=== PATIENT | female | born 1985 | race Caucasian/White ===

== ENCOUNTER → 2019-06-19 09:42 | Outpatient (BNVA) | payer MEDICARE, MEDICAID, SELFPAY | PROVIDERS: Family Provider Family Medicine; PCP Family Medicine; Visit Provider Specialist | DX: G40.909 Epilepsy, unspecified, not intractable, without status epilepticus (principal); F84.0 Autistic disorder | CPT/HCPCS: 99213 ==

== ENCOUNTER → 2019-10-22 10:02 | Outpatient (BNVA) | payer MEDICARE, MEDICAID, SELFPAY | PROVIDERS: Family Provider Family Medicine; PCP Family Medicine; Visit Provider Specialist | DX: F84.0 Autistic disorder (principal) | CPT/HCPCS: 99213 ==

== ENCOUNTER 2020-01-06 05:57 | Emergency (ER) | payer MEDICARE, MEDICAID, SELFPAY ==
[2020-01-06 06:02] VITALS: BP 112/72; PULSE 90; RESP 26; TEMP 36.3; O2SAT 94; BMI 49.0
--- NOTE | 2020-01-06 06:08 | XRR_ITS ---
PROCEDURE INFORMATION: Exam: XR Chest, 1 View Exam date and time: 01/06/2020 6:08 AM Age: 34 years old Clinical indication: Shortness of breath; Additional info: Cough TECHNIQUE: Imaging protocol: XR of the chest Views: 1 view. COMPARISON: CR Chest 1 [place] [id number] 01/23/2013 9:56 PM FINDINGS: Lungs: Interval appearance of multiple hazy densities in both lungs. Continued shallow lung volumes. Pleural space: Still no pneumothorax. No visible pleural fluid. Heart/Mediastinum: Interval increase in the heart size resulting in cardiomegaly. Bones/joints: No visible acute bony disease. XR/XR chest 1V portable [id number] IMPRESSION: Interval multiple bilateral lung densities suggesting pneumonia. Interval cardiomegaly, also.
--- NOTE | 2020-01-06 06:16 | ED_ITS ---
HPI - URI/Sore Throat General: Chief Complaint: Upper Respiratory Infection Stated Complaint: cough Time Seen by Provider: 01/06/20 06:07 Source: patient Mode of arrival: ambulatory Limitations: no limitations History of Present Illness: HPI Narrative: 34-year-old female whose had a cough over the last 5 days. Mother states is been nonproductive in nature. She has had no shortness of breath or fever. Patient is well-appearing here. They deny any worsening or improving factors. Associated symptoms: Deny abdominal pain, chills, chest pain, diarrhea, fever(s), headache(s), nausea or vomiting Review of Systems Const: Denies: fever(s), chills, body aches or change in appetite Eyes: Denies: blurry vision or eye discomfort ENMT: Denies: throat pain or dental pain Card: Denies: chest pain Resp: Reports: non-productive cough GI: Denies: abdominal pain, nausea, vomiting or diarrhea : Denies: dysuria Musc: Denies: neck pain or back pain Skin/Breast: Denies: rash Neuro: Denies: headache(s) Psych: Denies: depression Kaushik/Lymph: Denies: easy bruising All/Imm: Denies: urticaria PFSH ED PFSH: Family History Other CAD (coronary artery disease) Cancer Diabetes Denies family history of Hypertension Stroke Social History Smoking and tobacco status: never smoked Alcohol intake: never History of recent travel: No Physical Exam Const: COMMON NORMALS: no acute distress, patient oriented x3 and healthy appearing HENMT: COMMON NORMALS: normocephalic and atraumatic HEAD & SCALP: normocephalic and atraumatic Eye: COMMON NORMALS: Equal, round and reactive pupils present and EOMs intact bilaterally PUPIL: Yes Equal, round and reactive pupils present Neck/C-Spine: COMMON NORMALS: full ROM and supple Chest: COMMONS NORMALS: normal inspection of the chest and normal palpation of entire chest wall Resp: COMMON NORMALS: normal respiratory effort, No retractions, No use of accessory muscles and clear to auscultation bilaterally AUSCULTATION: clear to auscultation bilaterally Cardio: COMMON NORMALS: regular rate, regular rhythm and No murmurs present (Cardio) RATE: regular rate RHYTHM: regular rhythm GI: COMMON NORMALS: Normal to inspection, nondistended, normoactive bowel sounds present, Soft to palpation, non-tender and no masses PALPATION: Yes Soft to palpation Extremity: COMMON NORMALS: normal to inspection and full ROM Neuro: COMMON NORMALS: patient oriented x3, moves all extremities and no focal motor deficits Psych: COMMON NORMALS: mental status grossly normal, Normal thought process present and cooperative THOUGHT PROCESS: Normal thought process present Skin: COMMON NORMALS: no rashes or lesions noted and no wounds GENERAL SKIN EXAM: no rashes or lesions noted Course Vital Signs: Vital signs: Vital Signs Temperature 97.4 F L 01/06/20 06:02 Pulse Rate 90 01/06/20 06:02 Respiratory Rate 26 H 01/06/20 06:02 Blood Pressure 112/72 01/06/20 06:02 Pulse Oximetry 94 01/06/20 06:02 MDM - URI/Sore Throat MDM Narrative: Medical decision making narrative: Patient presents here with cough that is likely an upper respiratory infection. Will swab for COVID. Patient is stable for discharge and return if worsening. Her x-ray here shows slight perihilar infiltrates quality of x-ray is not great due to her size. Patient is afebrile here and is in no distress and is not requiring any oxygen. Will swab Open and start her on antibiotics. Informed her if she has any worsening symptoms to return. She is to get a pulse ox [id number] and monitor oxygen status. She is to follow-up with her primary care doctor in 3 to 5 days. Her and her mother understand and agree to plan.. Imaging Data^: CXR: Attestation: I personally reviewed and interpreted this imaging study as follows: My impression: slight perihilar infiltrate Discharge Plan Discharge Patient Disposition: Home Clinical Impression: Upper respiratory infection Qualifiers: URI type: unspecified URI Qualified Code(s): J06.9 - Acute upper respiratory infection, unspecified Condition: Stable Prescriptions: New doxycycline hyclate 100 mg tablet 100 mg PO BID 7 Days Qty: 14 RF: 0 No Action montelukast [Singulair] 10 mg tablet 10 mg PO DAILY RF: 0 desvenlafaxine succinate [Pristiq] 100 mg tablet extended release 24 hr 100 mg PO DAILY Qty: 30 RF: 6 clobazam [Onfi] 20 mg tablet 40 mg PO BID 30 Days Qty: 120 RF: 5 Vimpat 100 mg tablet 100 mg PO BID Qty: 60 RF: 5 lorazepam 0.5 mg tablet 0.5 mg PO BID PRN (Reason: anxiety) Qty: 60 RF: 5 olanzapine [Zyprexa] 2.5 mg tablet 2.5 mg PO DAILY Qty: 30 RF: 6 zonisamide [Zonegran] 100 mg capsule 300 mg PO BID 30 Days Qty: 180 RF: 6 Discharge Orders: Discharge Order (Routine); Ordered 01/06/20 Ordered By: Larry Corbett Referrals: Jeannette Mooney MD [Primary Care Provider] - 1-3 days Discharge Diet: Advance as tolerated Discharge Activity: Resume usual activity Patient Instructions: Upper Respiratory Infection (ED) Coding Level of Care Code ED Chief Petroleum Engineer for [place] Fwd Exam Comprehensive
--- NOTE | 2020-01-06 06:26 | XRR_ITS ---
PROCEDURE INFORMATION: Exam: XR Chest, 2 Views Exam date and time: 01/06/2020 6:38 AM Age: 34 years old Clinical indication: Shortness of breath; Additional info: Cough TECHNIQUE: Imaging protocol: XR of the chest Views: 2 views. COMPARISON: CR (CHEST, ) 01/06/2020 6:16 AM FINDINGS: Lungs: Interval slight increase in the lung volumes and decrease in the haziness in parts of the lungs. Pleural space: Still no pneumothorax or visible pleural fluid. Heart/Mediastinum: Continued cardiomegaly. Bones/joints: No apparent change in the bones. XR/XR chest 2V* [id number] IMPRESSION: Interval improvement in the lung infiltrates. Continued cardiomegaly.
[2020-01-06 07:00] VITALS: BP 112/72; PULSE 91; RESP 18; O2SAT 97
[2020-01-09 00:01] LABS: Quest SARS-CoV-2 RNA DETECTED (NOT DETECTED)
--- NOTE | 2020-01-09 09:25 | PC.NURSE ---
Pt called and notified of positive COVID result.
== END 2020-01-06 07:00 | disposition home or self-care (01) ==
PROVIDERS: Emergency Provider Emergency Medicine; PCP Family Medicine
DX: J06.9 Acute upper respiratory infection, unspecified (principal); U07.1 COVID-19
CPT/HCPCS: 12345; 71045; 71046; 87635; 99282; 99283

== ENCOUNTER → 2020-04-14 10:36 | Outpatient (BNVA) | payer MEDICARE, MEDICAID, SELFPAY | PROVIDERS: PCP Family Medicine; Visit Provider Specialist | DX: G40.909 Epilepsy, unspecified, not intractable, without status epilepticus (principal); F84.0 Autistic disorder; E66.01 Morbid (severe) obesity due to excess calories; Z68.43 Body mass index [BMI] 50.0-59.9, adult; Z86.16 Personal history of COVID-19 | CPT/HCPCS: 99214 ==

== ENCOUNTER → 2020-10-15 09:50 | Outpatient (BNVA) | payer MEDICARE, MEDICAID, SELFPAY | PROVIDERS: PCP Family Medicine; Visit Provider Specialist | DX: G40.109 Localization-related (focal) (partial) symptomatic epilepsy and epileptic syndromes with simple partial seizures, not intractable, without status epilepticus (principal); G40.909 Epilepsy, unspecified, not intractable, without status epilepticus | CPT/HCPCS: 99214 ==

== ENCOUNTER 2021-03-21 12:16 | Emergency (ER) | payer MEDICARE, MEDICAID, SELFPAY ==
[2021-03-21 12:37] VITALS: BP 150/102; PULSE 87; RESP 16; TEMP 36.3; O2SAT 95
--- NOTE | 2021-03-21 12:41 | XRR_ITS ---
PROCEDURE INFORMATION: Exam: XR Chest Exam date and time: 03/21/2021 12:41 PM Age: 35 years old Clinical indication: Cough TECHNIQUE: Imaging protocol: XR of the chest. Views: 1 view. COMPARISON: CR XR chest 2V* [id number] 01/06/2020 6:32 AM FINDINGS: Lungs: Unremarkable. No consolidation. Pleural spaces: Unremarkable. No pleural effusion. No pneumothorax. Heart/Mediastinum: Unremarkable. No cardiomegaly. Bones/joints: Unremarkable. XR/XR chest 1V portable [id number] IMPRESSION: No acute findings.
--- NOTE | 2021-03-21 12:41 | W.ED.URI ---
HPI - URI/Sore Throat General: Chief Complaint: Upper Respiratory Infection Stated Complaint: Bad Cough and Ear irritation Source: other (caregiver) Mode of arrival: ambulatory Limitations: no limitations History of Present Illness: HPI Narrative: Patient is a 35-year-old nonverbal adult here with family for concerns of a cough over the past two weeks that doesn't seem to be improving. She has been tested for COVID (PCR) at [facility] about 5-6 days ago and it was negative. Family states she has not been running fevers. Continuing to be at mental baseline. Still eating/drinking normally. Associated symptoms: Deny diarrhea, epistaxis, fever(s) (no documented fevers) or vomiting Review of Systems General: Reports: Other (pt is nonverbal-ROS answered from what is known by family) Const: Denies: fever(s) (no documented fevers), change in appetite or change in weight Eyes: Denies: eye discharge or eye redness ENMT: Denies: swelling of lips/tongue, ear discharge, nasal discharge or epistaxis Card: Reports: other (pt has not seemed like she is short of breath in any way); Denies: swelling of feet/ankles Resp: Reports: non-productive cough; Denies: wheezing, stridor or hemoptysis GI: Denies: vomiting, diarrhea or change in bowel habits : Reports: other (normal urinary habits) Skin/Breast: Denies: rash Neuro: Reports: other (no changes to mental baseline) PFSH ED PFSH: Family History Other CAD (coronary artery disease) Cancer Diabetes Denies family history of Hypertension Stroke Social History Smoking and tobacco status: never smoked Alcohol intake: never History of recent travel: No Physical Exam Const: COMMON NORMALS: no acute distress and alert EXAM LIMITATIONS: other limitations (pt with severe cognitive deficits; she is nonverbal) GENERAL APPEARANCE: cooperative NUTRITIONAL APPEARANCE: obese HENMT: COMMON NORMALS: normocephalic, atraumatic, EAC's normal, TM's normal bilaterally, Normal external nose present, Normal nasal mucous membranes and turbinates present, moist oral mucous membranes and oropharynx normal HEAD & SCALP: normal to inspection, normocephalic and atraumatic FACE & SINUS: normal facial exam NOSE: Normal external nose present and Normal nasal mucous membranes and turbinates present EXTERNAL EAR: Yes other (dry skin to L pinna/behind ear) EXTERNAL AUDITORY CANAL: EAC's normal TYMPANIC MEMBRANE: TM's normal bilaterally MOUTH: Normal oral and palatal mucosa present, lip normal and tongue normal THROAT: posterior oropharynx normal, tonsils normal and uvula midline Eye: GENERAL EYE: appearance normal, both eyes and all related structures Resp: COMMON NORMALS: normal respiratory effort and clear to auscultation bilaterally AUSCULTATION: clear to auscultation bilaterally Cardio: COMMON NORMALS: regular rate and regular rhythm RATE: regular rate RHYTHM: regular rhythm Extremity: COMMON NORMALS: no calf tenderness and no pedal edema Neuro: SENSORIUM/ORIENTATION: Yes alert Skin: COMMON NORMALS: no rashes or lesions noted GENERAL SKIN EXAM: no rashes or lesions noted Course Vital Signs: Vital signs: Vital Signs Temperature 97.3 F L 03/21/21 14:38 Pulse Rate 87 03/21/21 14:38 Respiratory Rate 16 03/21/21 14:38 Blood Pressure 116/78 03/21/21 14:38 Pulse Oximetry 96 03/21/21 14:38 MDM - URI/Sore Throat MDM Narrative: Medical decision making narrative: Brief history and physical exam was performed as part of the triage process. Due to current ED wait time patient will be placed in waiting room until a room becomes available. Explained to patient he/she will be seen in order of severity. Patient is currently safe to wait in the waiting room until we can get them placed. Patient informed that if condition worsens at any time to please let the front end web developer know. Patient appears in no acute distress. Her vital signs are normal. CXR is normal. She had a negative COVID PCR approximately 5 days ago. Recommend continuing to treat at home and she can follow-up with primary care next week for any nonimprovement. Return to ED precautions given. Imaging Data^: CXR: Radiologist's impression: [address] [place] [address] XRay Report Signed Patient: Magda Nieto Unit #: [id number] : 1985 Age/Sex: 35 / F ADM Date: 03/21/21 Loc: ER Room/Bed: Attending Dr: Ordering Provider/Ordering MD: Ana Serrano Date of Service: 03/21/21 Procedure(s): XR chest 1V portable [id number] Accession Number(s): [id number] Report Number: [id number] PROCEDURE INFORMATION: Exam: XR Chest Exam date and time: 03/21/2021 12:41 PM Age: 35 years old Clinical indication: Cough TECHNIQUE: Imaging protocol: XR of the chest. Views: 1 view. COMPARISON: CR XR chest 2V* [id number] 01/06/2020 6:32 AM FINDINGS: Lungs: Unremarkable. No consolidation. Pleural spaces: Unremarkable. No pleural effusion. No pneumothorax. Heart/Mediastinum: Unremarkable. No cardiomegaly. Bones/joints: Unremarkable. XR/XR chest 1V portable [id number] IMPRESSION: No acute findings. Dictated By: José West MD Signed By: José West MD Signed Date/Time: 03/21/21 1600 DD/ 1241 Discharge Plan Discharge Patient Disposition: Home Clinical Impression: Cough Condition: Stable Prescriptions: New Tessalon Perles 100 mg capsule 100 mg PO Q6H PRN (Reason: cough) Qty: 14 RF: 0 No Action levocetirizine 5 mg tablet 5 mg PO DAILY RF: 0 olanzapine [Zyprexa] 2.5 mg tablet 2.5 mg PO DAILY Qty: 30 RF: 6 zonisamide 100 mg capsule See Rx Instructions .ROUTE .COMPLEX Qty: 180 RF: 5 desvenlafaxine succinate [Pristiq] 100 mg tablet extended release 24 hr 100 mg PO DAILY Qty: 30 RF: 6 clobazam [Onfi] 20 mg tablet 40 mg PO BID 30 Days Qty: 120 RF: 5 lorazepam 0.5 mg tablet 0.5 mg PO BID PRN (Reason: anxiety) Qty: 60 RF: 5 Discharge Orders: Discharge ED (Routine); Ordered 03/21/21 Ordered By: Ana Serrano Referrals: Jeannette Mooney MD [Primary Care Provider] - Patient Instructions: Acute Cough (ED) Coding Level of Care Code ED Hematology Supervisor for Chg Shruthi
[2021-03-21 14:38] VITALS: BP 116/78; PULSE 87; RESP 16; TEMP 36.3; O2SAT 96
== END 2021-03-21 14:53 | disposition home or self-care (01) ==
PROVIDERS: Emergency Provider Physician Assistant; PCP Family Medicine
DX: R05.9 Cough, unspecified (principal); J06.9 Acute upper respiratory infection, unspecified; J02.9 Acute pharyngitis, unspecified
CPT/HCPCS: 71045; 99282

== ENCOUNTER → 2021-04-15 13:11 | Outpatient (BNVA) | payer MEDICARE, MEDICAID, SELFPAY | PROVIDERS: PCP Family Medicine; Visit Provider Specialist | DX: G40.111 Localization-related (focal) (partial) symptomatic epilepsy and epileptic syndromes with simple partial seizures, intractable, with status epilepticus (principal); G40.411 Other generalized epilepsy and epileptic syndromes, intractable, with status epilepticus; Z71.85 Encounter for immunization safety counseling | CPT/HCPCS: 99214; 99215 ==

== ENCOUNTER → 2021-08-11 13:07 | Outpatient (BNVA) | payer MEDICARE, MEDICAID, SELFPAY | PROVIDERS: PCP Family Medicine; Visit Provider Specialist | DX: G40.119 Localization-related (focal) (partial) symptomatic epilepsy and epileptic syndromes with simple partial seizures, intractable, without status epilepticus (principal); E66.01 Morbid (severe) obesity due to excess calories; Z68.42 Body mass index [BMI] 45.0-49.9, adult; F84.0 Autistic disorder; R53.83 Other fatigue | CPT/HCPCS: 99214 ==

== ENCOUNTER 2021-08-26 15:20 | Outpatient (CLI) | payer MEDICARE, MEDICAID, SELFPAY ==
--- NOTE | 2021-08-26 16:35 | XR_ITS ---
WS: [id number] CHEST 2 VIEWS HISTORY: CHRONIC COUGH COMPARISON: 03/21/2021 Quality of examination is limited by body habitus. Lungs: Lung volumes are decreased due to poor inspiration. This is resulting in mild crowding the tena g markings. No atelectasis or pneumonia. Normal vasculature. No pleural effusion. Cardiac size: Normal. Mediastinum/Aorta: Normal mediastinum. Bones: Normal. XR/XR chest 2V* [id number] IMPRESSION: Limited by poor inspiration and body habitus. No abnormality is identified.
== END 2021-08-26 15:21 | disposition home or self-care (01) ==
PROVIDERS: PCP Family Medicine; Visit Provider Specialist
DX: R05.3 Chronic cough (principal)
CPT/HCPCS: 71046

== ENCOUNTER 2021-09-19 12:07 | Emergency (ER) | payer MEDICARE, MEDICAID, SELFPAY ==
[2021-09-19 12:16] VITALS: BP 137/92; PULSE 122; RESP 18; O2SAT 95; BMI 46.3
--- NOTE | 2021-09-19 12:20 | XRR_ITS ---
PROCEDURE INFORMATION: Exam: XR Chest Exam date and time: 09/19/2021 12:27 PM Age: 35 years old Clinical indication: Shortness of breath; Additional info: SOB TECHNIQUE: Imaging protocol: Radiologic exam of the chest. Views: 1 view. COMPARISON: CR XR chest 2V* [id number] 08/26/2021 4:43 PM FINDINGS: Lungs: Unremarkable. No consolidation. Pleural spaces: Unremarkable. No pleural effusion. No pneumothorax. Heart/Mediastinum: Unremarkable. No cardiomegaly. Bones/joints: Unremarkable. XR/XR chest 1V portable [id number] IMPRESSION: No acute findings.
--- NOTE | 2021-09-19 12:22 | W.ED.SEIZURE ---
HPI - Seizure General: Chief Complaint: Seizure Stated Complaint: SEIZURE Time Seen by Provider: 09/19/21 12:10 History of Present Illness: HPI Narrative: Patient brought in by EMS after having a seizure. Mom states the patient has a history of seizures but this morning lasted longer than normal. States she did start Zyrtec and Zantac recently as new medications. Denies any fever, vomiting, or other recent obvious sick symptoms. The patient is nonverbal and does not communicate. Per EMS the patient was in the car with no air conditioning for about 30 minutes prior to this episode. Associated symptoms: Deny fever(s) Review of Systems General: Reports: Other (Review of systems is limited due to patient being nonverbal) Const: Denies: fever(s) or change in appetite Eyes: Denies: eye discharge or eye redness ENMT: Denies: nasal discharge or nasal congestion Resp: Denies: productive cough or wheezing GI: Denies: vomiting or diarrhea : Denies: urinary frequency Skin/Breast: Denies: rash, skin swelling or sores Neuro: Denies: weakness in extremities, difficulty walking or frequent falls Endo: Denies: polyuria or polydipsia PFSH ED PFSH: Family History Other CAD (coronary artery disease) Cancer Diabetes Denies family history of Hypertension Stroke Social History Smoking and tobacco status: never smoked Alcohol intake: never History of recent travel: No Physical Exam Const: COMMON NORMALS: no acute distress, healthy appearing and alert HENMT: COMMON NORMALS: normocephalic and atraumatic HEAD & SCALP: normocephalic and atraumatic Eye: COMMON NORMALS: Equal, round and reactive pupils present and EOMs intact bilaterally PUPIL: Yes Equal, round and reactive pupils present Neck/C-Spine: COMMON NORMALS: full ROM and supple Resp: COMMON NORMALS: normal respiratory effort, No retractions and No use of accessory muscles Cardio: COMMON NORMALS: regular rhythm RHYTHM: regular rhythm OTHER: Tachycardia GI: COMMON NORMALS: Normal to inspection, nondistended, normoactive bowel sounds present, Soft to palpation and non-tender PALPATION: Yes Soft to palpation Extremity: COMMON NORMALS: normal to inspection and full ROM Neuro: SENSORIUM/ORIENTATION: Yes alert Skin: COMMON NORMALS: no rashes or lesions noted and no wounds GENERAL SKIN EXAM: no rashes or lesions noted Course Vital Signs: Vital signs: Vital Signs Pulse Rate 107 H 09/19/21 13:54 Respiratory Rate 23 H 09/19/21 13:54 Blood Pressure 144/82 09/19/21 13:54 Pulse Oximetry 100 09/19/21 13:54 MDM - Seizure MDM Narrative Medical decision making narrative: Patient brought in by EMS after having a seizure. Mom states the patient has a history of seizures but this morning lasted longer than normal. States she did start Zyrtec and Zantac recently as new medications. Denies any fever, vomiting, or other recent obvious sick symptoms. The patient is nonverbal and does not communicate. Per EMS the patient was in the car with no air conditioning for about 30 minutes prior to this episode. On physical exam she is awake and alert. She is tachycardic otherwise her exam is grossly normal. We will check labs, x-ray, urine if we can obtain it without straight cath, and reassess. On reassessment I talked to the patient's mom about the test results. Will discharge home at this time with precautions to return for worsening or changing symptoms. Lab Data Result diagrams: 09/19/21 12:25 09/19/21 12:25 Labs: Radiology Impressions Chest X-Ray 09/19/21 12:20 IMPRESSION: No acute findings. Laboratory Results WBC 12.7 10^3/uL (4.0-10.0) H 09/19/21 12:25 RBC 5.02 10^6/uL (4.1-5.3) 09/19/21 12:25 Hgb 13.9 g/dL (11.5-15.3) 09/19/21 12:25 Hct 43.1 % (37.0-47.0) 09/19/21 12:25 MCV 85.9 fl (81-99) 09/19/21 12:25 MCH 27.7 pg (28.0-34.0) L 09/19/21 12:25 MCHC 32.3 g/dL (30.0-36.0) 09/19/21 12:25 RDW 13.9 % (12.1-15.1) 09/19/21 12:25 Plt Count 227 10^3/cmm (130-400) 09/19/21 12:25 MPV 10.4 fL (7.4-10.4) 09/19/21 12:25 Neut % (Auto) 76.7 % 09/19/21 12:25 Lymph % (Auto) 12.8 % 09/19/21 12:25 [place] % (Auto) 8.3 % 09/19/21 12:25 Eos % (Auto) 1.2 % 09/19/21 12:25 Baso % (Auto) 0.5 % 09/19/21 12:25 Neut # (Auto) 9.74 10^3/uL (1.8-7.7) H 09/19/21 12:25 Lymph # (Auto) 1.6 10^3/uL (0.8-4.8) 09/19/21 12:25 [place] # (Auto) 1.1 10^3/uL (0.2-0.9) H 09/19/21 12:25 Eos # (Auto) 0.2 10^3/uL (0.0-0.8) 09/19/21 12:25 Baso # (Auto) 0.1 10^3/uL (0.0-0.1) 09/19/21 12:25 Nucleated RBC % (auto) 0 % 09/19/21 12:25 Nucleated RBCs # 0.0 /100WBC 09/19/21 12:25 Sodium 142 mmol/L (136-145) 09/19/21 12:25 Potassium 3.8 mmol/L (3.5-5.1) 09/19/21 12:25 Chloride 110 mmol/L (98-107) H 09/19/21 12:25 Carbon Dioxide 21 mmol/L (22-29) L 09/19/21 12:25 Anion Gap 14.8 (5-19) 09/19/21 12:25 BUN 11 mg/dL (6-20) 09/19/21 12:25 Creatinine 0.7 mg/dL (0.5-0.9) 09/19/21 12:25 GFR Calculation 94.7 mL/min (90-130) 09/19/21 12:25 Glucose 113 mg/dL (65-115) 09/19/21 12:25 Calculated Osmolality 294 mOsm/kg (285-295) 09/19/21 12:25 Calcium 8.5 mg/dL (8.5-10.5) 09/19/21 12:25 Magnesium 1.9 mg/dL (1.7-2.3) 09/19/21 12:25 Total Bilirubin 0.2 mg/dL (0.15-1.2) 09/19/21 12:25 AST 32 U/L (0-32) 09/19/21 12:25 ALT 83 U/L (0-33) H 09/19/21 12:25 Alkaline Phosphatase 120 IU/L (35-105) H 09/19/21 12:25 Total Protein 6.4 g/dL (6.6-8.7) L 09/19/21 12:25 Albumin 3.2 g/dL (3.5-5.2) L 09/19/21 12:25 Globulin 3.2 g/dL (1.3-4.6) 09/19/21 12:25 Urine Color Yellow (Yellow) 09/19/21 13:50 Urine Appearance Cloudy (CLEAR) 09/19/21 13:50 Urine pH 8 (5-7) H 09/19/21 13:50 Ur Specific [place] 1.015 (1.005-1.030) 09/19/21 13:50 Urine Protein Neg (Negative) 09/19/21 13:50 Urine Glucose (UA) Norm (Normal) 09/19/21 13:50 Urine Ketones Negative (Negative) 09/19/21 13:50 Urine Blood 2+ (Negative) H 09/19/21 13:50 Urine Nitrate Negative (Negative) 09/19/21 13:50 Urine Bilirubin Neg (Negative) 09/19/21 13:50 Prot Sulfosalicylic Acd Negative (Negative) 09/19/21 13:50 Urine Urobilinogen Norm mg/dL (Negative) 09/19/21 13:50 Ur Leukocyte Esterase Negative (Negative) 09/19/21 13:50 Discharge Plan Discharge Patient Disposition: Home Clinical Impression: Seizure Condition: Stable Prescriptions: No Action levocetirizine 5 mg tablet 5 mg PO DAILY 0RF clobazam [Onfi] 20 mg tablet 40 mg PO BID 30 Days Qty: 120 5RF cenobamate 200 mg tablet 200 mg PO DAILY Qty: 30 2RF lorazepam 0.5 mg tablet 0.5 mg PO BID PRN (Reason: anxiety) Qty: 60 5RF omeprazole 40 mg Capsule,Delayed Release(Dr/Ec) 40 mg PO DAILY 0RF famotidine 20 mg Tablet 20 mg PO BID 0RF Vitamin B-6 50 mg Tablet 25 mg PO DAILY 0RF Probiotic 15 billion cell Capsule 1 cap PO DAILY 0RF olanzapine 2.5 mg tablet 2.5 mg PO DAILY 0RF zonisamide 100 mg capsule 300 mg PO BID 0RF desvenlafaxine succinate 100 mg tablet extended release 24 hr 100 mg PO DAILY 0RF Discharge Orders: Discharge ED (Routine); Ordered 09/19/21 Ordered By: Cesar Garsia Referrals: Jeannette Mooney MD [Primary Care Provider] - Coding Level of Care Code ED Program Management Specialist for Chg Fwd Exam Comprehensive
[2021-09-19] MEDS: sodium chloride 0.9% 1,000 ML 999 ML IV (12:37)
[2021-09-19 13:01] LABS: Basophils # 0.1 10^3/uL (0.0-0.1); Basophils % 0.5 %; Eosinophils # 0.2 10^3/uL (0.0-0.8); Eosinophils % 1.2 %; Hematocrit 43.1 % (37.0-47.0); Hemoglobin 13.9 g/dL (11.5-15.3); Lymphocytes # 1.6 10^3/uL (0.8-4.8); Lymphocytes % 12.8 %; Mean Corpuscular HGB Conc 32.3 g/dL (30.0-36.0); Mean Corpuscular Hemoglobin 27.7 pg (28.0-34.0); Mean Corpuscular Volume 85.9 fl (81-99); Mean Platelet Volume 10.4 fL (7.4-10.4); Monocytes # 1.1 10^3/uL (0.2-0.9); Monocytes % 8.3 %; Neutrophils # 9.74 10^3/uL (1.8-7.7); Neutrophils % 76.7 %; Nucleated Red Blood Cells % 0 %; Platelet Count 227 10^3/cmm (130-400); Red Blood Count 5.02 10^6/uL (4.1-5.3); Red Cell Distribution Width 13.9 % (12.1-15.1); White Blood Count 12.7 10^3/uL (4.0-10.0)
[2021-09-19 13:25] LABS: Alanine Aminotransferase 83 U/L (0-33); Albumin Level 3.2 g/dL (3.5-5.2); Alkaline Phosphatase 120 IU/L (35-105); Aspartate Amino Transferase 32 U/L (0-32); Blood Urea Nitrogen 11 mg/dL (6-20); Calcium 8.5 mg/dL (8.5-10.5); Carbon Dioxide 21 mmol/L (22-29); Chloride 110 mmol/L (98-107); Globulin 3.2 g/dL (1.3-4.6); Glomerular Filtration Rate 94.7 mL/min (90-130); Glucose 113 mg/dL (65-115); Magnesium 1.9 mg/dL (1.7-2.3); Osmolality Calculated 294 mOsm/kg (285-295); Sodium 142 mmol/L (136-145); Total Bilirubin 0.2 mg/dL (0.15-1.2); Total Protein 6.4 g/dL (6.6-8.7)
[2021-09-19 13:27] LABS: Anion Gap 14.8 (5-19); Potassium 3.8 mmol/L (3.5-5.1)
[2021-09-19 13:54] VITALS: BP 144/82; PULSE 107; RESP 23; O2SAT 100
[2021-09-19 14:31] LABS: Specific Gravity, Urine 1.015 (1.005-1.030); Urine Appearance Cloudy (CLEAR); Urine Color Yellow (Yellow); pH Urine 8 (5-7)
[2021-09-19 14:34] LABS: Add Urine Microscopic? YES; Bilirubin Urine Neg (Negative); Blood Urine 2+ (Negative); Glucose Urine UA Norm (Normal); Ketones Urine Negative (Negative); Leukocyte Esterase Urine Negative (Negative); Nitrate Urine Negative (Negative); Protein Urine Neg (Negative); Sulfosalicylic Acid Urine Negative (Negative); Urobilinogen Urine Norm (Negative)
[2021-09-19 14:35] LABS: Squamous Epithelial Cell Urine 0-4 /hpf (0-5); WBC Urine RARE /hpf (0-5)
[2021-09-19 14:36] LABS: Amorphous Sediment Urine 3+ /hpf; Bacteria Urine 1+ /hpf
[2021-09-19 14:43] LABS: Add Urine Culture? No
[2021-09-19 14:47] VITALS: BP 133/88; PULSE 103; RESP 20; O2SAT 99
--- NOTE | 2021-09-20 07:21 | DCPLANNER ---
Addendum entered by Kandy Steiner 10/25/21 15:26: infrastructure project manager was sent the following message about referral: Clinic Attempted to reach her at [phone] and had to leave a voicemail. Original Note: infrastructure project manager had message to schedule a follow up appointment for patient with neurology. infrastructure project manager sent patients information to the front office staff at neurology. Patients information will be printed and reviewed. Clinic will call patient with appointment information.
== END 2021-09-19 14:49 | disposition home or self-care (01) ==
PROVIDERS: Emergency Provider Emergency Medicine; PCP Family Medicine
DX: R56.9 Unspecified convulsions (principal); I25.10 Atherosclerotic heart disease of native coronary artery without angina pectoris; E11.9 Type 2 diabetes mellitus without complications
CPT/HCPCS: 71045; 80053; 81001; 83735; 85025; 99283; J7030

== ENCOUNTER 2021-09-24 18:43 | Emergency (ER) | payer MEDICARE, MEDICAID, SELFPAY ==
--- NOTE | 2021-09-24 18:47 | ECG_ITS ---
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 Measurements Intervals Oto Rate: 143 P: 45 DE: 116 QRS: 3 QRSD: 114 T: 23 QT: 327 QTc: 506 Interpretive Statements SINUS TACHYCARDIA WITH SHORT DE INTERVAL, POSSIBLE ATRIAL FLUTTER INCOMPLETE RIGHT BUNDLE BRANCH BLOCK [90+ ms QRS DURATION, TERMINAL R IN V1/V2, 40+ ms S IN I/aVL/V4/V5/V6] ABNORMAL RHYTHM ECG No previous ECG available for comparison Electronically Signed On 09-24-2021 22:29:04 CDT by Bartolo Owusu M.D. [email or web address]
--- NOTE | 2021-09-24 18:58 | W.ED.GENADLT ---
HPI - General Adult General: Chief complaint: Seizure Stated complaint: seizure Time Seen by Provider: 09/24/21 18:55 History of Present Illness: HPI: [35]yo patient w/ hx of epilespy on multiple medications (cenobamate, lorazepam, zonisamide), autism spectrum disorder BIBA to the ED with multiple episode of witnessed seizures. Patient has had two episodes of seizures at 4pm earlier today. Family called EMS and patient was brought to the ED. En route, the patient had a fingerstick glucose of 120 and an episode of seizure. She received 2 mg of IM midazolam. Shortly after arriving to the emergency room, patient had another episode of witnessed seizure in triage. Patient received 5 mg of IV Versed with cessation of seiuzre. rest of the hx limited by cognitive status. Patient is currently post-ictal. Onset: 4pm Duration: x4 episode Location: home Severity: moderate Review of Systems General: Reports: ROS unobtainable due to medical condition and ROS unobtainable due to mental status Neuro: Reports: other (+Seizure, postictal) [facility] ED PFSH: Medical History Autism spectrum disorder Seizure Family History Other CAD (coronary artery disease) Cancer Diabetes Denies family history of Hypertension Stroke Social History Smoking and tobacco status: never smoked Alcohol intake: never History of recent travel: No Physical Exam HENMT: COMMON NORMALS: atraumatic HEAD & SCALP: atraumatic MOUTH: moist mucous membranes abnormal (+mouth open, no visible lacerations) Eye: COMMON NORMALS: conjunctivae normal CONJUNCTIVA: Yes conjunctivae normal Neck/C-Spine: COMMON NORMALS: supple Resp: COMMON NORMALS: normal respiratory effort and clear to auscultation bilaterally AUSCULTATION: clear to auscultation bilaterally Cardio: RATE: tachycardic GI: COMMON NORMALS: Soft to palpation and non-tender PALPATION: Yes Soft to palpation Extremity: COMMON NORMALS: full ROM Neuro: OTHER: +postictal, lower extremity to sternal rub, +unable to assess neuro status due to AMS Psych: OTHER: +unable to asses sdue to AMS Course Vital Signs: Vital signs: Vital Signs Temperature 97.7 F 09/24/21 19:04 Pulse Rate 97 09/24/21 21:06 Respiratory Rate 20 H 09/24/21 21:06 Blood Pressure 172/98 09/24/21 19:04 Pulse Oximetry 96 09/24/21 21:06 MDM - General Adult Medical Decision Making [35]yo patient w/ known hx of seizure on mulitple medications medications BIBA after multiple breakthrough seizures including one in triage lasting for 30 seconds broke with 5mg of versed. Post-icteral on arrival. The episode of seizure was witnessed and without any trauma/injury to the head. No immunosuppression hx and without preceding fever. - history of alcohol abuse or suspicion for toxin ingestion. Hx of prior seizure likely breakthrough seizure in the setting of medication change/non-compliance. HDS. Exam revealed no focal trauma/deformity/bruises. No lips/tongue lacerations. No visible bowel/bladder incontinence Airway protected. No drooling. Sats > 95%. Unlikely to be stroke, neurogenic syncope, acute delirium, intracranial tumor/mass, intracranial bleed, SAH/subdural hematoma/epidural hematoma, meningitis, or intracranial abscess, or from alcohol withdrawal. Workup: CBC, BMP, Magnesium, EKG, CT head ED Interventions: 1g of keppra, IVF x 2L EKG: No e/o STEMI. No evidence of Brugada?s sign, delta wave, epsilon wave, significantly prolonged QTc, or malignant arrhythmia. Lab findings: Electrolytes including K and Mg wnl. [9:30pm] On reassessment, patient back to baseline. In the ED, the patient received 1g of keppra in the ED. No other witnessed episodes of seizure while the patient was observed in the ED. Repeat neuro exam is non-focal and repeat ROS today is negative. The patient's family, patient has been obtained the script cenobamate that Dr. Rosario prescribed during most recent outpatient evaluation. Patient tolerated PO in the ED and back to baseline per family. Patient has a leukocytosis of 19.5 likely reactive. Patient has an anion gap consistent with recent seizure. Unlikely to be alternative causes of seizures since the patient has no hx of immunosuppression, no recent fevers, no recent abx/CUSTOMER SOLUTIONS ARCHITECT shunt, no recent toxic exposure, no unilateral or focal weakness, or trauma. Repeat neurological exam is intact after patient is fully awake. No suspicion for TIA/stroke/SAH/brain bleed/ or infection for seizure episode. I have given patient follow up with our counseling case manager to be seen by our outpatient Neurology for management of breakthrough seizures. Patient aware of a call from our counseling case manager to schedule for appointment(s) and verbalizes understanding of the importance of following up. Rx keppra 500mg BID x 14 days Disposition: Discharge. Patient is given instruction for follow-up with PCP and Neurology in the next 24-48 hours. Given seizure precautions including no driving, swimming, or bathing until the patient is fully evaluated by specialists. Lab Data : 09/24/21 19:30 09/24/21 19: Radiology Impressions Head CT 09/24/21 19: IMPRESSION: 1. Mild left sphenoid sinus disease. 2. Mild right maxillary sinus disease. 3. No acute intracranial findings. Laboratory Results WBC 19.5 10^3/uL (4.0-10.0) H 09/24/21: RBC 5.13 10^6/uL (4.1-5.3) 09/24/21 19: Hgb 14.4 g/dL (11.5-15.3) 09/24/21: Hct 44.4 % (37.0-47.0) 09/24/21: MCV 86.5 fl (81-99) 09/24/21 19: MCH 28.1 pg (28.0-34.0) 09/24/21: MCHC 32.4 g/dL (30.0-36.0) 09/24/21: RDW 13.9 % (12.1-15.1) 09/24/21: Plt Count 326 10^3/cmm (130-400) 09/24/21: MPV 10.4 fL (7.4-10.4) 09/24/21: Neut % (Auto) 79.3 % 09/24/21 19: Lymph % (Auto) 11.4 % 09/24/21: [place] % (Auto) 7.4 % 09/24/21: Eos % (Auto) 0.6 % 09/24/21 19: Baso % (Auto) 0.6 % 09/24/21 19:30 Neut # (Auto) 15.43 10^3/uL (1.8-7.7) H 09/24/21 19:30 Lymph # (Auto) 2.2 10^3/uL (0.8-4.8) 09/24/21 19:30 [place] # (Auto) 1.4 10^3/uL (0.2-0.9) H 09/24/21 19:30 Eos # (Auto) 0.1 10^3/uL (0.0-0.8) 09/24/21 19:30 Baso # (Auto) 0.1 10^3/uL (0.0-0.1) 09/24/21: Nucleated RBC % (auto) 0 % 09/24/21: Nucleated RBCs # 0.0 /100WBC 09/24/21:30 Sodium 138 mmol/L (136-145) 09/24/21: Potassium 4.4 mmol/L (3.5-5.1) 09/24/21: Chloride 103 mmol/L (98-107) 09/24/21: Carbon Dioxide 13 mmol/L (22-29) L 09/24/21: Anion Gap 26.4 (5-19) H 09/24/21 19:30 BUN 10 mg/dL (6-20) 09/24/21 19:30 Creatinine 0.9 mg/dL (0.5-0.9) 09/24/21 19:30 GFR Calculation 70.8 mL/min (90-130) L 09/24/21: Glucose 137 mg/dL (65-115) H 09/24/21 19:30 Calculated Osmolality 287 mOsm/kg (285-295) 09/24/21 19:30 Calcium 8.7 mg/dL (8.5-10.5) 09/24/21 19:30 Total Bilirubin 0.2 mg/dL (0.15-1.2) 09/24/21 19:30 AST 33 U/L (0-32) H 09/24/21 19:30 ALT 94 U/L (0-33) H 09/24/21 19:30 Alkaline Phosphatase 119 IU/L (35-105) H 09/24/21 19:30 Total Protein 6.7 g/dL (6.6-8.7) 09/24/21 19:30 Albumin 3.4 g/dL (3.5-5.2) L 09/24/21 19:30 Globulin 3.3 g/dL (1.3-4.6) 09/24/21 19:30 Lipase 16 U/L (13-60) 09/24/21 19:30 TSH 5.12 uIU/mL (0.27-4.20) H 09/24/21 19:30 Free T4 0.94 ng/dL (0.82-1.77) 09/24/21 19:30 Imaging Data Other Imaging: Radiologist's impression: [facility] [address] [address] [address] Scan Report Signed Patient: Magda Nieto Unit #: [id number] : 1985 Age/Sex: 35 / F ADM Date: 09/24/21 Loc: ER Room/Bed: Attending Dr: Ordering Provider/Ordering MD: Robinson Eubanks MD Date of Service: 09/24/21 Procedure(s): CT head wo con* [id number] Accession Number(s): [id number] Report Number: [id number] PROCEDURE INFORMATION: Exam: CT Head Without Contrast Exam date and time: 09/24/2021 8:40 PM Age: 35 years old Clinical indication: Patient HX: Multiple seizures today. Patient non verbal. History of seizure disorder. ; Additional info: Multiple seiuzres TECHNIQUE: Imaging protocol: Computed tomography of the head without contrast. Radiation optimization: All CT scans at this facility use at least one of these dose optimization techniques: automated exposure control; mA and/or kV adjustment per patient size (includes targeted exams where dose is matched to clinical indication); or iterative reconstruction. COMPARISON: No relevant prior studies available. RADIATION DOSE METRICS: Total DLP (mGy-cm): 844.32 FINDINGS: Brain: Normal. No hemorrhage. Unremarkable white matter. No mass effect. Cerebral ventricles: No ventriculomegaly. Paranasal sinuses: Mild left sphenoid sinus disease. Mild right maxillary sinus disease. Mastoid air cells: Visualized mastoid air cells are well aerated. Bones/joints: Unremarkable. No acute fracture. Soft tissues: Unremarkable. CT/CT head wo con* [id number] IMPRESSION: 1. Mild left sphenoid sinus disease. 2. Mild right maxillary sinus disease. 3. No acute intracranial findings. ? Dictated By: Angel Paiz MD Signed By: Angel Paiz MD Signed Date/Time: 09/24/212136 DD/ 39 Discharge Plan Discharge Patient Disposition: Home Clinical Impression: Seizure Condition: Stable Prescriptions: New Keppra 500 mg tablet 500 mg PO BID 14 Days Qty: 28 0RF No Action levocetirizine 5 mg tablet 5 mg PO DAILY 0RF clobazam [Onfi] 20 mg tablet 40 mg PO BID 30 Days Qty: 120 5RF lorazepam 0.5 mg tablet 0.5 mg PO BID PRN (Reason: anxiety) Qty: 60 5RF cenobamate 150 mg tablet 300 mg PO DAILY Qty: 60 3RF Rx Instructions: Take 2 tablets daily. omeprazole 40 mg Capsule,Delayed Release(Dr/Ec) 40 mg PO DAILY 0RF famotidine 20 mg Tablet 20 mg PO BID 0RF Vitamin B-6 50 mg Tablet 25 mg PO DAILY 0RF Probiotic 15 billion cell Capsule 1 cap PO DAILY 0RF olanzapine 2.5 mg tablet 2.5 mg PO DAILY 0RF zonisamide 100 mg capsule 300 mg PO BID 0RF desvenlafaxine succinate 100 mg tablet extended release 24 hr 100 mg PO DAILY 0RF Discharge Orders: Discharge ED (Routine); Ordered 09/24/21 Ordered By: Robinson Eubanks Referrals: Jeannette Mooney MD [Primary Care Provider] - Discharge Diet: Advance as tolerated Discharge Activity: Increase activity as tolerated Patient Instructions: Epilepsy (ED) Activity Restrictions/Additional Instructions: Please come back to the emergency room for any more breakthrough episodes of seizure. Come back if any weakness in her arms, drooling, difficulty speaking, any neurological symptoms. Please do not swim bathe or drive a vehicle unattended. Coding Level of Care Code ED Marking Machine Operator for Ilang Fwd Exam Detailed
[2021-09-24 19:04] VITALS: BP 172/98; PULSE 154; RESP 30; TEMP 36.5; O2SAT 94; BMI 46.3
[2021-09-24] MEDS: sodium chloride 0.9% 1,000 ML 999 ML IV ×2 (19:11→20:51)
--- NOTE | 2021-09-24 19:17 | CTR_ITS ---
PROCEDURE INFORMATION: Exam: CT Head Without Contrast Exam date and time: 09/24/2021 8:40 PM Age: 35 years old Clinical indication: Patient HX: Multiple seizures today. Patient non verbal. History of seizure disorder. ; Additional info: Multiple seiuzres TECHNIQUE: Imaging protocol: Computed tomography of the head without contrast. Radiation optimization: All CT scans at this facility use at least one of these dose optimization techniques: automated exposure control; mA and/or kV adjustment per patient size (includes targeted exams where dose is matched to clinical indication); or iterative reconstruction. COMPARISON: No relevant prior studies available. RADIATION DOSE METRICS: Total DLP (mGy-cm): 844.32 FINDINGS: Brain: Normal. No hemorrhage. Unremarkable white matter. No mass effect. Cerebral ventricles: No ventriculomegaly. Paranasal sinuses: Mild left sphenoid sinus disease. Mild right maxillary sinus disease. Mastoid air cells: Visualized mastoid air cells are well aerated. Bones/joints: Unremarkable. No acute fracture. Soft tissues: Unremarkable. CT/CT head wo con* [id number] IMPRESSION: 1. Mild left sphenoid sinus disease. 2. Mild right maxillary sinus disease. 3. No acute intracranial findings.
[2021-09-24 19:43] LABS: Basophils # 0.1 10^3/uL (0.0-0.1); Basophils % 0.6 %; Eosinophils # 0.1 10^3/uL (0.0-0.8); Eosinophils % 0.6 %; Hematocrit 44.4 % (37.0-47.0); Hemoglobin 14.4 g/dL (11.5-15.3); Lymphocytes # 2.2 10^3/uL (0.8-4.8); Lymphocytes % 11.4 %; Mean Corpuscular HGB Conc 32.4 g/dL (30.0-36.0); Mean Corpuscular Hemoglobin 28.1 pg (28.0-34.0); Mean Corpuscular Volume 86.5 fl (81-99); Mean Platelet Volume 10.4 fL (7.4-10.4); Monocytes # 1.4 10^3/uL (0.2-0.9); Monocytes % 7.4 %; Neutrophils # 15.43 10^3/uL (1.8-7.7); Neutrophils % 79.3 %; Nucleated Red Blood Cells % 0 %; Platelet Count 326 10^3/cmm (130-400); Red Blood Count 5.13 10^6/uL (4.1-5.3); Red Cell Distribution Width 13.9 % (12.1-15.1); White Blood Count 19.5 10^3/uL (4.0-10.0)
[2021-09-24 20:10] LABS: Alanine Aminotransferase 94 U/L (0-33); Albumin Level 3.4 g/dL (3.5-5.2); Alkaline Phosphatase 119 IU/L (35-105); Anion Gap 26.4 (5-19); Aspartate Amino Transferase 33 U/L (0-32); Blood Urea Nitrogen 10 mg/dL (6-20); Calcium 8.7 mg/dL (8.5-10.5); Carbon Dioxide 13 mmol/L (22-29); Chloride 103 mmol/L (98-107); Globulin 3.3 g/dL (1.3-4.6); Glomerular Filtration Rate 70.8 mL/min (90-130); Glucose 137 mg/dL (65-115); Lipase 16 U/L (13-60); Osmolality Calculated 287 mOsm/kg (285-295); Potassium 4.4 mmol/L (3.5-5.1); Sodium 138 mmol/L (136-145); Thyroid Stimulating Hormone 5.12 uIU/mL (0.27-4.20); Total Bilirubin 0.2 mg/dL (0.15-1.2); Total Protein 6.7 g/dL (6.6-8.7)
[2021-09-24 20:27] VITALS: PULSE 105; RESP 22; O2SAT 98
[2021-09-24 21:06] VITALS: PULSE 97; RESP 20; O2SAT 96
[2021-09-24 21:11] LABS: Free T4 Free Thyroxine 0.94 ng/dL (0.82-1.77)
[2021-09-24 22:09] VITALS: BP 117/68; PULSE 100; RESP 19; O2SAT 98
--- NOTE | 2021-09-25 14:57 | DCPLANNER ---
Addendum entered by Kandy Steiner 03/16/22 12:57: Patient had a follow up appointment scheduled with neurology - patient did attend appointment. Addendum entered by Kandy Steiner 10/26/21 10:48: Patient has a follow up appointment scheduled for Wednesday, February 09, 2022 at 1:[address] Rosario. Clinic will call patient with appointment information. Original Note: nonprofit manager had message to schedule a follow up appointment for patient with neurology. nonprofit manager sent patients information to the front office staff at neurology. Patients information will be printed and reviewed. Clinic will call patient with appointment information.
[2021-10-01 13:48] LABS: Zonisamide (Zonegran) 25.8 mcg/mL (10.0-40.0)
== END 2021-09-24 22:04 | disposition home or self-care (01) ==
PROVIDERS: Emergency Provider Emergency Medicine; PCP Family Medicine
DX: R56.9 Unspecified convulsions (principal); F84.0 Autistic disorder
CPT/HCPCS: 70450; 80053; 80203; 83690; 84439; 84443; 85025; 93005; 96365; 99284; J1953; J7030

== ENCOUNTER 2021-11-07 23:15 | Emergency (ER) | payer MEDICARE, MEDICAID, SELFPAY ==
[2021-11-07 23:16] VITALS: BP 100/55; PULSE 115; RESP 20; TEMP 36.4; O2SAT 89; BMI 51.5
--- NOTE | 2021-11-07 23:28 | W.ED.SEIZURE ---
HPI - Seizure General: Chief Complaint: Seizure Stated Complaint: SEIZURES Time Seen by Provider: 11/07/21 23:17 Source: family and EMS Mode of arrival: EMS Limitations: altered mental status History of Present Illness: HPI Narrative: Patient had [id number] female who has a history of autism and is nonverbal at baseline has a history of seizures as well. Seizure lasting 5 to 10 minutes I did give her 2 of Ativan patient is no longer seizing patient will arouse not able to get any history from her due to being nonverbal no head injury patient did recently start Keppra 2 weeks ago. Seizure History: Yes Review of Systems General: Reports: ROS unobtainable due to mental status PFSH ED PFSH: Medical History Autism spectrum disorder Seizure Family History Other CAD (coronary artery disease) Cancer Diabetes Denies family history of Hypertension Stroke Social History Smoking and tobacco status: never smoked Alcohol intake: never History of recent travel: No Physical Exam Const: COMMON NORMALS: negative for patient oriented x3 EXAM LIMITATIONS: altered mental status HENMT: COMMON NORMALS: normocephalic and atraumatic HEAD & SCALP: normocephalic and atraumatic Eye: COMMON NORMALS: Equal, round and reactive pupils present and EOMs intact bilaterally PUPIL: Yes Equal, round and reactive pupils present Neck/C-Spine: COMMON NORMALS: full ROM and supple Chest: COMMONS NORMALS: normal inspection of the chest and normal palpation of entire chest wall Resp: COMMON NORMALS: normal respiratory effort, No retractions, No use of accessory muscles and clear to auscultation bilaterally AUSCULTATION: clear to auscultation bilaterally Cardio: COMMON NORMALS: regular rate, regular rhythm and No murmurs present (Cardio) RATE: regular rate RHYTHM: regular rhythm GI: COMMON NORMALS: Normal to inspection, nondistended, normoactive bowel sounds present, Soft to palpation, non-tender and no masses PALPATION: Yes Soft to palpation Extremity: COMMON NORMALS: normal to inspection and full ROM Neuro: COMMON NORMALS: moves all extremities and no focal motor deficits; negative for patient oriented x3 Psych: COMMON NORMALS: negative for mental status grossly normal Skin: COMMON NORMALS: no rashes or lesions noted and no wounds GENERAL SKIN EXAM: no rashes or lesions noted Course Vital Signs: Vital signs: Vital Signs Temperature 97.6 F 11/07/21 23:16 Pulse Rate 84 11/08/21 02:02 Respiratory Rate 18 11/08/21 02:02 Blood Pressure 103/65 11/08/21 02:02 Pulse Oximetry 94 11/08/21 02:02 Oxygen Delivery Me thod 11/08/21 02:02 MDM - Seizure MDM Narrative Medical decision making narrative: Patient presents with a seizure she has a seizure history she is well-appearing here at discharge she is now awake and alert and at her baseline electrolytes here are normal no signs of head injury she is stable for discharge she is to follow-up with PCP and return if worsening she understands agrees to plan. Lab Data Result diagrams: 11/07/21 23:43 Labs: Laboratory Results Sodium 138 mmol/L (136-145) 11/07/21 23:43 Potassium 3.4 mmol/L (3.5-5.1) L 11/07/21 23:43 Chloride 108 mmol/L (98-107) H 11/07/21 23:43 Carbon Dioxide 22 mmol/L (22-29) 11/07/21 23:43 Anion Gap 11.4 (5-19) 11/07/21 23:43 BUN 10 mg/dL (6-20) 11/07/21 23:43 Creatinine 0.8 mg/dL (0.5-0.9) 11/07/21 23:43 GFR Calculation 81.2 mL/min (90-130) L 11/07/21 23:43 Glucose 175 mg/dL (65-115) H 11/07/21 23:43 Calculated Osmolality 289 mOsm/kg (285-295) 11/07/21 23:43 Calcium 8.3 mg/dL (8.5-10.5) L 11/07/21 23:43 Discharge Plan Discharge Patient Disposition: Home Clinical Impression: Seizure Condition: Stable Prescriptions: No Action levocetirizine 5 mg tablet 5 mg PO DAILY clobazam [Onfi] 20 mg tablet 40 mg PO BID 30 Days Qty: 120 5RF lorazepam 0.5 mg tablet 0.5 mg PO BID PRN (Reason: anxiety) Qty: 60 5RF cenobamate 150 mg tablet 300 mg PO DAILY Qty: 60 3RF Rx Instructions: Take 2 tablets daily. omeprazole 40 mg Capsule,Delayed Release(Dr/Ec) 40 mg PO DAILY famotidine 20 mg Tablet 20 mg PO BID Vitamin B-6 50 mg Tablet 25 mg PO DAILY Probiotic 15 billion cell Capsule 1 cap PO DAILY olanzapine 2.5 mg tablet 2.5 mg PO DAILY zonisamide 100 mg capsule 300 mg PO BID desvenlafaxine succinate 100 mg tablet extended release 24 hr 100 mg PO DAILY Discharge Orders: Discharge ED (Routine); Ordered 11/08/21 Ordered By: Larry Corbett Referrals: Jeannette Mooney MD [Primary Care Provider] - 1-3 days Discharge Diet: Advance as tolerated Discharge Activity: Resume usual activity Patient Instructions: Generalized Tonic Clonic Seizures (ED) Coding Level of Care Code ED Appraisal Technician for Priyanka Fwd Exam Comprehensive
[2021-11-07] MEDS: levETIRAcetam 750 MG in sodium chloride 0.9% (100 ml) 100 ML 430 MG IV (23:42)
[2021-11-08 00:14] LABS: Blood Urea Nitrogen 10 mg/dL (6-20); Calcium 8.3 mg/dL (8.5-10.5); Carbon Dioxide 22 mmol/L (22-29); Chloride 108 mmol/L (98-107); Glomerular Filtration Rate 81.2 mL/min (90-130); Glucose 175 mg/dL (65-115); Osmolality Calculated 289 mOsm/kg (285-295); Sodium 138 mmol/L (136-145)
[2021-11-08 00:15] LABS: Anion Gap 11.4 (5-19); Potassium 3.4 mmol/L (3.5-5.1)
[2021-11-08 00:52] VITALS: BP 100/55; PULSE 99; RESP 16; O2SAT 89
[2021-11-08 02:02] VITALS: BP 103/65; PULSE 84; RESP 18; O2SAT 94
[2021-11-08 02:43] VITALS: BP 115/68; PULSE 87; O2SAT 96
== END 2021-11-08 02:45 | disposition home or self-care (01) ==
PROVIDERS: Emergency Provider Emergency Medicine; PCP Family Medicine
DX: R56.9 Unspecified convulsions (principal); F84.0 Autistic disorder
CPT/HCPCS: 80048; 96365; 99284; J1953

== ENCOUNTER → 2021-11-18 12:06 | Outpatient (BNVA) | payer MEDICARE, MEDICAID, SELFPAY | PROVIDERS: PCP Family Medicine; Visit Provider Specialist | DX: G40.409 Other generalized epilepsy and epileptic syndromes, not intractable, without status epilepticus (principal); E66.01 Morbid (severe) obesity due to excess calories; F84.0 Autistic disorder; F32.A Depression, unspecified; Z68.42 Body mass index [BMI] 45.0-49.9, adult | CPT/HCPCS: 99214; 99215 ==

== ENCOUNTER → 2022-02-09 12:42 | Outpatient (BNVA) | payer MEDICARE, MEDICAID, SELFPAY | PROVIDERS: PCP Family Medicine; Visit Provider Specialist | DX: G40.802 Other epilepsy, not intractable, without status epilepticus (principal); G47.10 Hypersomnia, unspecified | CPT/HCPCS: 99214 ==

== ENCOUNTER → 2022-06-15 13:40 | Outpatient (BNVA) | payer MEDICARE, MEDICAID, SELFPAY | PROVIDERS: PCP Family Medicine; Visit Provider Specialist | DX: G40.802 Other epilepsy, not intractable, without status epilepticus (principal) | CPT/HCPCS: 99214 ==

== ENCOUNTER → 2022-12-28 14:31 | Outpatient (BNVA) | payer MEDICARE, MEDICAID, SELFPAY | PROVIDERS: PCP Family Medicine; Visit Provider Specialist | DX: G40.802 Other epilepsy, not intractable, without status epilepticus (principal) | CPT/HCPCS: 99213; 99214 ==

== ENCOUNTER → 2023-01-24 11:34 | Outpatient (BNVA) | payer MEDICARE, MEDICAID, SELFPAY | PROVIDERS: PCP Family Medicine; Visit Provider Specialist | DX: G40.802 Other epilepsy, not intractable, without status epilepticus (principal) | CPT/HCPCS: 99214 ==

== ENCOUNTER 2023-04-14 09:00 | Emergency (ER) | payer MEDICARE, MEDICAID, SELFPAY ==
[2023-04-14 09:00] VITALS: BP 133/82; PULSE 130; RESP 16; TEMP 36.8; O2SAT 95; BMI 37.2
--- NOTE | 2023-04-14 09:35 | ED_ITS ---
HPI - Fall General: Chief Complaint: Fall Stated Complaint: fall, seziure Time Seen by Provider: 04/14/23 09:12 Source: patient Mode of arrival: ambulatory History of Present Illness: 37-year-old female history of autism. S he is nonverbal she has a history of seizures she had a seizure this morning and fell. She has some swelling on the upper chest and slight bruising on the jaw. She is able to open and close the jaw without any difficulty. No damage to the teeth. complaint: fall Fall from: standing Fall witnessed: yes, by family Place fall occurred: home Loss of consciousness: None Symptoms prior to fall: none Context: seizure Location of injury: face and chest Review of Systems General: Reports: ROS unobtainable due to medical condition PFSH ED PFSH: Medical History Autism spectrum disorder Psychiatric care Seizure Family History Other CAD (coronary artery disease) Cancer Diabetes Denies family history of Hypertension Stroke Social History Smoking and tobacco/nicotine status: never used tobacco/nicotine Alcohol intake: never Substance/Drug Use: never Female Reproductive History: Date of last menstrual period: 04/07/23 Physical Exam Const: COMMON NORMALS: no acute distress GENERAL APPEARANCE: cooperative and comfortable ORIENTATION/CONSCIOUSNESS: Yes awake HENMT: COMMON NORMALS: normocephalic HEAD & SCALP: normocephalic Resp: COMMON NORMALS: normal respiratory effort, No retractions, No use of accessory muscles and clear to auscultation bilaterally AUSCULTATION: clear to auscultation bilaterally Cardio: COMMON NORMALS: regular rate, regular rhythm and No murmurs present (Cardio) RATE: regular rate RHYTHM: regular rhythm GI: COMMON NORMALS: Soft to palpation and No hepatosplenomegaly present AUSCULTATION: Yes normoactive bowel sounds PALPATION: Yes Soft to palpation, No Tenderness to palpation present (GI), No Guarding due to palpation present (GI) and Yes No hepatosplenomegaly present Extremity: COMMON NORMALS: normal to inspection, capillary refill normal, no clubbing, cyanosis or edema, no calf tenderness and no pedal edema Skin: COMMON NORMALS: no rashes or lesions noted GENERAL SKIN EXAM: no rashes or lesions noted Course Vital Signs: Vital signs: Vital Signs Temperature 98.2 F 04/14/23 09:00 Pulse Rate 130 H 04/14/23 09:00 Respiratory Rate 16 04/14/23 09:00 Blood Pressure 133/82 04/14/23 09:00 Pulse Oximetry 95 04/14/23 09:00 Oxygen Delivery Me thod Room Air 04/14/23 09:00 MDM - Fall Medical Decision Making No acute fractures on imaging physical exam shows some mild bruising but otherwise no significant injury. Will discharge patient home. Continue routine medications. Follow-up with neurology clinic for recommendations for medication adjustments. Medical Records I reviewed the patient's medical records. Lab Data I reviewed the patient's lab results. Radiology Impressions Cervical Spine X-Ray 04/14/23 09:39 IMPRESSION: No acute findings. Clavicle X-Ray 04/14/23 09:39 IMPRESSION: No acute fracture or dislocation. Chest X-Ray 04/14/23 09:40 IMPRESSION: No acute intrathoracic findings. Mandible X-Ray 04/14/23 09:40 IMPRESSION: No displaced fracture. All radiology interpretation(s) finalized by discharge Discharge Plan Discharge Patient Disposition: Home Clinical Impression: Generalized epilepsy, Autism, Fall Condition: Stable Prescriptions: No Action levocetirizine 5 mg tablet 5 mg PO DAILY montelukast 10 mg tablet 10 mg PO DAILY ipratropium bromide 21 mcg (0.03 %) spray,non-aerosol See Rx Instructions .ROUTE .COMPLEX Rx Instructions: USE 2 SPRAYS IN EACH NOSTRIL 3 TIMES DAILY NEEDED FOR NASAL DRAINAGE. nystatin 100,000 unit/gram powder 1 g topical BID PRN (Reason: YEAST) cenobamate 200 mg tablet 200 mg PO BID Qty: 60 5RF lorazepam [Lorazepam Intensol] 2 mg/mL concentrate 2 mg PO ONCE PRN (Reason: seizures) Qty: 30 1RF omeprazole 40 mg Capsule,Delayed Release(Dr/Ec) 40 mg PO DAILY ondansetron 8 mg tablet,disintegrating 8 mg PO Q6H PRN (Reason: Nausea And Vomiting) levetiracetam 500 mg tablet 500 mg PO BID olanzapine 5 mg tablet 5 mg PO DAILY zonisamide 100 mg capsule 300 mg PO BID lorazepam 0.5 mg tablet See Rx Instructions .ROUTE .COMPLEX PRN (Reason: anxiety) Rx Instructions: Take 2 tabs every night and 2 in the day as needed for seizure desvenlafaxine succinate 100 mg tablet extended release 24 hr 100 mg PO DAILY Discharge Orders: Discharge ED (Routine); Ordered 04/14/23 Ordered By: Virgil Singer Referrals: Jeannette Mooney MD [Primary Care Provider] - Discharge Diet: Usual diet Discharge Activity: Resume usual activity Patient Instructions: Opioid Safety, Pain Management Activity Restrictions/Additional Instructions: Thank you for choosing [facility] for your healthcare needs today. Please realize this is an emergency room and that we are providing you with a medical screening exam and this may not be complete and all inclusive of all the testing and or work up that you may need to determine your ailment or severity of your illness. It is very important that you follow up as instructed or that you return to the Emergency Department should you have concerns or if your condition changes or worsens in any way. You were seen today after a seizure. The fall resulted in some soft tissue bruising but there is no evidence of fracture on the x-rays. Continue current medications follow-up with your neurologist regarding any recommendations for changes in your seizure medications. Coding Level of Care Code ED [employer] Estate [employer] Principal for Priyanka Hawkins
--- NOTE | 2023-04-14 09:39 | XRR_ITS ---
PROCEDURE INFORMATION: Exam: XR Right Clavicle, Complete Exam date and time: 04/14/2023 10:36 AM Age: 37 years old Clinical indication: Injury or trauma; Fall; Other: Unknown TECHNIQUE: Imaging protocol: Radiologic exam of the right clavicle. Complete exam. Views: Any number of views. COMPARISON: CR XR chest 1V portable [id number] 04/14/2023 10:32 AM FINDINGS: Bones/joints: No acute fracture or dislocation. Joint spaces are preserved. Soft tissues: Normal. XR/[place] [id number] IMPRESSION: No acute fracture or dislocation.
--- NOTE | 2023-04-14 09:39 | XRR_ITS ---
PROCEDURE INFORMATION: Exam: XR Cervical Spine Exam date and time: 04/14/2023 10:25 AM Age: 37 years old Clinical indication: Injury or trauma; Other: Unknown; Patient HX: Fall due to seizure TECHNIQUE: Imaging protocol: Radiologic exam of the cervical spine. Views: 2 or 3 views. COMPARISON: CR XR mandible min 4V [id number] 04/14/2023 9:51 AM FINDINGS: Bones/joints: Normal. No acute fracture. Normal alignment. Soft tissues: Unremarkable. XR/XR cervical spine 3V* [id number] IMPRESSION: No acute findings.
--- NOTE | 2023-04-14 09:40 | XRR_ITS ---
PROCEDURE INFORMATION: Exam: XR Bilateral Mandible Exam date and time: 04/14/2023 9:51 AM Age: 37 years old Clinical indication: Injury or trauma; Fall; Other: Unknown TECHNIQUE: Imaging protocol: XR of the bilateral mandible. Views: 4 or more views COMPARISON: CT head wo con* [id number] 09/24/2021 8:40 PM FINDINGS: Sinuses: Well aerated. No opacification. Bones/joints: No displaced fracture. Soft tissues: Unremarkable. XR/XR mandible min 4V [id number] IMPRESSION: No displaced fracture.
--- NOTE | 2023-04-14 09:40 | XRR_ITS ---
PROCEDURE INFORMATION: Exam: XR Chest Exam date and time: 04/14/2023 10:32 AM Age: 37 years old Clinical indication: Injury or trauma; Fall; Other: Unknown TECHNIQUE: Imaging protocol: Radiologic exam of the chest. Views: 1 view. COMPARISON: CR XR chest 1V portable [id number] 09/19/2021 12:27 PM FINDINGS: Lungs: Low lung volumes with bronchovascular crowding. No focal consolidation. Pleural spaces: No sizable pleural effusion or pneumothorax. Heart/Mediastinum: No cardiomegaly. Bones/joints: Unremarkable. XR/XR chest 1V portable [id number] IMPRESSION: No acute intrathoracic findings.
--- NOTE | 2023-04-14 12:51 | DCPLANNER ---
Message was sent to ortho on at 1251. Clinic to contact patient
--- NOTE | 2023-04-15 10:33 | DCPLANNER ---
I faxed all of this patients visit form 04/14/[address] [facility] on 04/15/23 at 1020. Fax number: [phone]. Clinic to contact patient
== END 2023-04-14 11:35 | disposition home or self-care (01) ==
PROVIDERS: Emergency Provider Family Medicine; PCP Family Medicine
DX: G40.409 Other generalized epilepsy and epileptic syndromes, not intractable, without status epilepticus (principal); F84.0 Autistic disorder
CPT/HCPCS: 70110; 71045; 72040; 73000; 99284

== ENCOUNTER → 2023-05-24 14:39 | Outpatient (BNVA) | payer MEDICARE, MEDICAID, SELFPAY | PROVIDERS: PCP Family Medicine; Visit Provider Specialist | DX: G40.802 Other epilepsy, not intractable, without status epilepticus (principal) | CPT/HCPCS: 99214 ==

== ENCOUNTER → 2023-07-26 09:25 | Outpatient (BNVA) | payer MEDICARE, MEDICAID, SELFPAY | PROVIDERS: PCP Family Medicine; Visit Provider Specialist | DX: G40.802 Other epilepsy, not intractable, without status epilepticus (principal); F84.0 Autistic disorder; E66.01 Morbid (severe) obesity due to excess calories; Z68.41 Body mass index [BMI] 40.0-44.9, adult | CPT/HCPCS: 99214 ==

== ENCOUNTER → 2024-07-25 08:36 | Outpatient (BNVA) | payer MEDICARE, MEDICAID, SELFPAY | PROVIDERS: PCP Family Medicine; Visit Provider Specialist | DX: G40.802 Other epilepsy, not intractable, without status epilepticus (principal); F84.0 Autistic disorder; E66.01 Morbid (severe) obesity due to excess calories; Z68.42 Body mass index [BMI] 45.0-49.9, adult | CPT/HCPCS: 99213 ==